=== PATIENT | female | born 1995 | race Two or more races ===

== ENCOUNTER 2016-11-16 19:06 | Emergency (ER) | payer OTHER ==
[~2016-11-16] VITALS: Ht 160 cm; Wt 74.8 kg
[2016-11-16 19:34] LABS: BASOPHILS % (AUTO) 0.6 % (0.0-2.0); DIFF TOTAL % 100 %; EOSINOPHILS # (AUTO) 0.2 /CMM (0.0-0.7); EOSINOPHILS % (AUTO) 2.4 % (0.0-6.0); HEMATOCRIT 33 % (33-45); HEMOGLOBIN 11.2 g/dL (11.5-14.8); LYMPHOCYTES # (AUTO) 1.4 /CMM (0.8-4.8); LYMPHOCYTES % (AUTO) 21.8 % (20.0-44.0); MEAN CORPUSCULAR HEMOGLOBIN 30 PG (26.0-33.0); MEAN CORPUSCULAR HGB CONC 34 g/dl (31.0-36.0); MEAN CORPUSCULAR VOLUME 89 fL (82-100); MONOCYTES # (AUTO) 0.5 /CMM (0.1-1.30); MONOCYTES % (AUTO) 7.5 % (2.0-12.0); NEUTROPHILS # (AUTO) 4.5 /CMM (1.8-8.9); NEUTROPHILS % (AUTO) 67.7 % (43.0-81.0); PLATELET COUNT (AUTO) 240 /CMM (150-450); RED BLOOD CELL COUNT(AUTO) 3.74 MIL/uL (4.0-5.2); WHITE BLOOD COUNT (AUTO) 6.6 K/uL (4.3-11.0)
[2016-11-16 19:47] LABS: ALANINE AMINOTRANSFERASE 46 U/L (12-78); ALBUMIN 3.2 g/dL (3.4-5.0); ANION GAP 9 (5-14); ASPARTATE AMINOTRANSFERASE 27 U/L (15-37); BILIRUBIN,TOTAL 0.1 mg/dL (0.2-1.0); CALCIUM, SERUM 8.4 mg/dL (8.5-10.1); CARBON DIOXIDE 30 mmol/L (21-32); CHLORIDE 105 mmol/L (98-107); CREATININE 0.7 mg/dL (0.6-1.3); GFR 104 mL/min (>60); GLUCOSE 96 mg/dL (74-106); POTASSIUM 3.9 mmol/L (3.5-5.1); SODIUM SERUM 140 mmol/L (136-145); TOTAL PROTEIN, SERUM 6.5 g/dL (6.4-8.2); UREA NITROGEN, BLOOD 17 mg/dL (7-18)
[2016-11-16 19:54] LABS: SALICYLATE 1.9 mg/dL (2.8-20.0)
[2016-11-16 19:55] LABS: ACETAMINOPHEN 0 ug/ml (10-30); INDIRECT BILIRUBIN 0.1 mg/dL (0.0-1.1)
[2016-11-16] MEDS ORDERED: ACETAMINOPHEN 650 MG/20.3 ML UDC PO STA (20:10)
[2016-11-16] MEDS ORDERED: ACETAMINOPHEN 650 MG/20.3 ML UDC ONE (20:19)
[2016-11-16 20:53] LABS: KETONES,URINE Negative (NEGATIVE); LEUKOCYTE ESTERASE ,URINE Trace (NEGATIVE); PH,URINE 7.5 (5.0-8.0)
[2016-11-16 21:07] LABS: CANNABINOID, URINE NEGATIVE (NEGATIVE); PHENCYCLIDINE SCREEN,URINE NEGATIVE (NEGATIVE)
[2016-11-16 21:28] LABS: ADD UA MICROSCOPIC YES
[2016-11-16] MEDS ORDERED: LORAZEPAM 1 MG TABLET ONE (21:29)
[2016-11-16 21:30] LABS: ADD URINE CULTURE NO; RBC,URINE 2-3/HPF /HPF (0-2); WBC,URINE 3-4/HPF /HPF (0-3)
[2016-11-16] MEDS ORDERED: LORAZEPAM 1 MG TABLET PO ONE (21:30)
[2016-11-16 22:51] VITALS: BP 111/64
== END 2016-11-16 22:52 | disposition home or self-care (01) ==
LOC: ER 19:08
DX: N39.0 Urinary tract infection, site not specified (principal); E11.9 Type 2 diabetes mellitus without complications; Z88.8 Allergy status to other drugs, medicaments and biological substances; F41.9 Anxiety disorder, unspecified; F25.9 Schizoaffective disorder, unspecified
CPT/HCPCS: 36415; 80048; 80076; 80305; 81001; 84703; 85025; 93005; 99285; A4606; G0480; G0481; G0482; Z7610; 81000-TC; G6038-TC; G6039-TC; G6040-TC